=== PATIENT | female | born 1950 | race Caucasian/White ===

== ENCOUNTER 2025-06-24 05:48 | Outpatient (CLI) | payer MEDICARE, SELFPAY ==
[2025-06-24] MEDS: Gadoterate meglumine 20 ML VIAL IVP (09:25)
[2025-06-24] MEDS: Normal Saline Flush 10 ML SYR IVP (09:26)
--- NOTE | 2025-06-24 09:55 | DI.MRI_ITS ---
Exam(s) MR IAC BRAIN WO/W EXAM: MR IAC BRAIN WO/W CLINICAL HISTORY: vertigo, sn hearing loss bilat,h90.3,r42. TECHNIQUE: Multiplanar multisequence MRI of the brain and internal auditory canals was performed. CONTRAST MATERIAL: IV Contrast: 10 mL of Dotarem contrast administered. COMPARISON: No exams were available for comparison FINDINGS: VENTRICLES AND EXTRA AXIAL SPACES: Normal in size and morphology for the patient's age. HEMORRHAGE: None. CEREBRAL PARENCHYMA: No focus of restricted diffusion to suggest acute infarct. No space-occupying lesion identified. There are few tiny foci in the white matter likely reflecting mild microvascular changes. MIDLINE SHIFT: None. BRAINSTEM/CEREBELLUM: Normal. CALVARIUM: Normal. ENHANCEMENT: No suspicious enhancement identified. VISUALIZED PARANASAL SINUSES/MASTOIDS: Mucosal thickening left maxillary sinus. ORBITS: Unremarkable. IAC/CP ANGLE: The internal auditory canals are within normal limits. The cerebellar pontine angles are unremarkable. No enhancing lesions are seen. Visualized portions of the cranial nerves appear within normal limits. IMPRESSION: Unremarkable MRI of the brain and internal auditory canals. DATA REPOSITORY:
== END 2025-06-24 06:08 ==
LOC: DI 05:48
PROVIDERS: PCP Family Medicine; Visit Provider Registered Nurse Maternal Newborn
DX: R42 Dizziness and giddiness (principal); H90.3 Sensorineural hearing loss, bilateral
CPT/HCPCS: 70553